=== PATIENT | female | born 1985 | race Two or more races ===

== ENCOUNTER 2016-11-07 11:57 | Emergency (ER) | payer MEDICAID ==
[2016-11-07 12:35] LABS: URINE BILIRUBIN NEGATIVE (NEGATIVE); URINE BLOOD 2+ (NEGATIVE); URINE GLUCOSE (UA) NEGATIVE (NEGATIVE); URINE LEUKOCYTE ESTERASE NEGATIVE (NEGATIVE); URINE NITRITE NEGATIVE (NEGATIVE); URINE PROTEIN 2+ (NEGATIVE); URINE UROBILINOGEN NORMAL (0-1 mg/dl)
[2016-11-07 12:36] LABS: URINE APPEARANCE CLEAR; URINE COLOR YELLOW
[2016-11-07 12:37] LABS: HCG,QUALITATIVE URINE NEGATIVE
[2016-11-07 12:41] LABS: URINE BACTERIA RARE; URINE MUCUS 1+; URINE WBC NEG /hpf
[2016-11-07] MEDS ORDERED: MORPHINE SULFATE 4 MG/ML SYRINGE ONE (13:00)
[2016-11-07] MEDS ORDERED: PROCHLORPERAZINE 5 MG/ML 2 ML VIAL ONE (13:00)
--- NOTE | 2016-11-07 13:19 | CT ---
CT ABDOMEN AND PELVIS WITHOUT CONTRAST HISTORY: Right flank pain. TECHNIQUE: No intravenous contrast administered; contiguous axial images were acquired from the lung bases to the ischial tuberosities. Oral contrast was was not administered. COMPARISON:None. FINDINGS: LUNG BASES: No gross airspace consolidation or pleural effusion. LIVER: No focal mass effect. SPLEEN: No focal mass effect. PANCREAS: No focal mass effect. ADRENAL GLANDS: No mass effect. KIDNEYS: Asymmetric left-sided perinephric stranding and mild to moderate collecting system dilatation. Moderate prominence of the left ureter with calcification compatible with 3 mm calculus at the left ureterovesicular junction. GALLBLADDER: Evidence of cholelithiasis. BOWEL: Moderate fecal loading. Limited assessment of the distal colon due to decompression. No abnormal small bowel dilatation. APPENDIX: Normal gas-filled appendix. PELVIC ORGANS: No gross mass effect. FREE FLUID: No gross free fluid identified. ABDOMINOPELVIC LYMPH NODES: No abnormally enlarged lymph nodes identified. ABDOMINAL AORTA: Normal caliber. OSSEOUS STRUCTURES: No grossly destructive lesions. IMPRESSION: 1. Obstructive 3 mm calculus at the left ureterovesicular junction. No residual renal calculi. 2. Noninflammatory, nonobstructive appearance of bowel. Normal appendix. Results were electronically transmitted to the electronic medical record at 11/07/2016 at 1315 hours.
== END 2016-11-07 13:58 | disposition home or self-care (01) ==
LOC: ED 11:57
DX: N20.0 Calculus of kidney (principal); E03.9 Hypothyroidism, unspecified; E78.5 Hyperlipidemia, unspecified; E78.2 Mixed hyperlipidemia; Z79.899 Other long term (current) drug therapy
CPT/HCPCS: 81025; 81001; 74176; 96375; 99283 ×2; 96374; J0780; J2270